=== PATIENT | male | born 1980 | race Two or more races ===

== ENCOUNTER 2019-05-18 14:54 | Emergency (ER) | payer OTHER ==
[~2019-05-18] VITALS: Ht 160 cm; Wt 83.0 kg
[2019-05-18 15:22] VITALS: BP 127/94
[2019-05-18] MEDS ORDERED: TETanus/Pertussis (Acell)/Diphther VAC/PF (Tdap-Adult) 0.5ml syringe IMVAC ONE (15:40)
== END 2019-05-18 16:33 | disposition home or self-care (01) ==
LOC: ER 14:55
DX: S61.012A Laceration without foreign body of left thumb without damage to nail, initial encounter (principal); W31.2XXA Contact with powered woodworking and forming machines, initial encounter; Y93.89 Activity, other specified; Y92.89 Other specified places as the place of occurrence of the external cause; Y99.9 Unspecified external cause status
CPT/HCPCS: 12001; 73140; 90471; 99283

== ENCOUNTER 2019-05-30 16:06 | Emergency (ER) | payer OTHER ==
[~2019-05-30] VITALS: Ht 160 cm; Wt 84.6 kg
[2019-05-30 16:18] VITALS: BP 123/92
== END 2019-05-30 18:25 | disposition home or self-care (01) ==
LOC: ER 16:07
DX: S61.012D Laceration without foreign body of left thumb without damage to nail, subsequent encounter (principal); W27.8XXD Contact with other nonpowered hand tool, subsequent encounter
CPT/HCPCS: 99281